=== PATIENT | female | born 1935 | race Caucasian/White ===

== ENCOUNTER 2018-07-17 12:48 | Inpatient (IN) | payer MEDICARE ==
[~2018-07-17] VITALS: Ht 157.5 cm; Wt 73.7 kg
[~2018-07-17 12:48] MED LIST: AMLO10TA6 PO; ASPI-496 PO; ESTR0.3T PO; FENO145T32 PO; METO200T47 PO
[2018-07-17] MEDS ORDERED: SODIUM CHLORIDE FLUSH 10ML SYR IVF ONE (13:00)
[2018-07-17 13:22] LABS: BASOPHILS # (AUTO) 0.02 x10^3/uL (0-0.1); BASOPHILS % (AUTO) 0 % (0-1); EOSINOPHILS # (AUTO) 0.04 x10^3/uL (0-0.4); EOSINOPHILS % (AUTO) 0 % (1-7); LYMPHOCYTES # (AUTO) 1.47 x10^3/uL (1-3.4); LYMPHOCYTES % (AUTO) 14 % (22-44); MD NO; MEAN CORPUSCULAR HEMOGLOBIN 30.9 pg (27.0-34.8); MEAN CORPUSCULAR HGB CONC 34.1 g/dL (32.4-35.8); MEAN CORPUSCULAR VOLUME 90.8 fL (80-100); MEAN PLATELET VOLUME 8.5 fL (7.4-10.4); MONOCYTES # (AUTO) 0.81 x10^3/uL (0.2-0.8); MONOCYTES % (AUTO) 7 % (2-9); NEUTROPHILS % (AUTO) 78 % (42-75); PLATELET COUNT 208 x10^3/uL (130-400); RED BLOOD COUNT 4.81 x10^6/uL (3.82-5.3); RED CELL DISTRIBUTION WIDTH 13.6 % (9.6-15.2)
[2018-07-17 13:30] LABS: INTERNATIONAL NORMALIZED RATIO 1.1 (0.93-1.1); PROTHROMBIN TIME 11.6 Seconds (9.6-11.5)
[2018-07-17 13:35] LABS: ALANINE AMINOTRANSFERASE 32 U/L (12-78); ALBUMIN 3.6 g/dL (3.4-5.0); ANION GAP 9 mmol/L (5-15); CALCIUM 8.4 mg/dL (8.5-10.1); CHLORIDE 112 mmol/L (98-107); CREATININE 1.29 mg/dL (0.55-1.02)
[2018-07-17 13:36] LABS: ALKALINE PHOSPHATASE 68 U/L (45-117); BILIRUBIN,TOTAL 0.5 mg/dL (0.2-1.0); SALICYLATE LEVEL < 1.7 mg/dL (2.8-20.0); TOTAL PROTEIN 6.6 g/dL (6.4-8.2)
[2018-07-17] MEDS: PLEASE ENTER HEIGHT AND WEIGHT MC SCH ×2 (13:57→14:52)
[2018-07-17 15:13] LABS: CULTURE INDICATED? YES; MICROSCOPIC INDICATED
[2018-07-17 15:26] LABS: AMPHETAMINE SCREEN, URINE Negative (Negative); BARBITURATE SCREEN, URINE Negative (Negative); BENZODIAZEPINE SCREEN, URINE Negative (Negative); CANNABINOID SCREEN, URINE Negative (Negative); COCAINE SCREEN, URINE Negative (Negative); METHADONE SCREEN, URINE Negative (Negative); OPIATE SCREEN, URINE Positive (Negative)
[2018-07-17] MEDS ORDERED: SODIUM CHLORIDE 0.9% 1,000 ML IV SCH (16:10)
[2018-07-17] MEDS ORDERED: HEPARIN 5,000 UNITS/ML, 1ML ONE (16:22)
[2018-07-17] MEDS ORDERED: ONDANSETRON 2MG/ML, 2ML IVPush PRN (16:30)
[2018-07-17] MEDS ORDERED: hydrALAzine 20 MG/ML, 1ML IVPush PRN (16:30)
[2018-07-17] MEDS ORDERED: POLYETHYLENE GLYCOL 17 GM PACKET PO PRN (16:30)
[2018-07-17] MEDS ORDERED: NALOXONE 0.4 MG/ML, 1ML IVPush PRN (16:30)
[2018-07-17] MEDS ORDERED: BISACODYL 10 MG SUPP PR PRN (16:30)
[2018-07-17] MEDS: HEPARIN 5,000 UNITS/ML, 1ML SQ SCH (16:44)
[2018-07-17 17:08] VITALS: BP 148/78
[2018-07-17] MEDS: METOPROLOL TARTRATE 50 MG TABLET PO SCH (18:00)
[2018-07-17 18:30] VITALS: BP 130/80
[2018-07-17] MEDS: CALCIUM CARBONATE 500 MG TAB.CHEW PO PRN (20:15)
[2018-07-17] MEDS ORDERED: OMEP20CA14 PO (22:36)
[2018-07-18] MEDS ORDERED: MAALOX/HYOSCYAMINE/LIDOCAINE 45 ML BTL PO ONE
[2018-07-18 00:49] VITALS: BP 129/71
[2018-07-18] MEDS: HEPARIN 5,000 UNITS/ML, 1ML SQ SCH ×3 (01:00→16:42)
[2018-07-18 04:50] LABS: BASOPHILS # (AUTO) 0.02 x10^3/uL (0-0.1); BASOPHILS % (AUTO) 0 % (0-1); EOSINOPHILS # (AUTO) 0.01 x10^3/uL (0-0.4); EOSINOPHILS % (AUTO) 0 % (1-7); LYMPHOCYTES % (AUTO) 15 % (22-44); MD NO; MEAN CORPUSCULAR HEMOGLOBIN 30.8 pg (27.0-34.8); MEAN CORPUSCULAR HGB CONC 33.9 g/dL (32.4-35.8); MEAN CORPUSCULAR VOLUME 90.9 fL (80-100); MEAN PLATELET VOLUME 8.8 fL (7.4-10.4); MONOCYTES # (AUTO) 0.62 x10^3/uL (0.2-0.8); MONOCYTES % (AUTO) 8 % (2-9); NEUTROPHILS # (AUTO) 6.31 x10^3/uL (1.8-6.8); NEUTROPHILS % (AUTO) 77 % (42-75); PLATELET COUNT 172 x10^3/uL (130-400); RED CELL DISTRIBUTION WIDTH 13.4 % (9.6-15.2)
[2018-07-18 05:00] LABS: ALBUMIN 3.2 g/dL (3.4-5.0); ANION GAP 8 mmol/L (5-15); CALCIUM 8.6 mg/dL (8.5-10.1); CHLORIDE 110 mmol/L (98-107)
[2018-07-18 05:03] LABS: ALANINE AMINOTRANSFERASE 48 U/L (12-78); ALKALINE PHOSPHATASE 58 U/L (45-117); BILIRUBIN,TOTAL 0.5 mg/dL (0.2-1.0); CREATININE 1.27 mg/dL (0.55-1.02)
[2018-07-18] MEDS: METOPROLOL TARTRATE 50 MG TABLET PO SCH ×2 (05:23→18:35)
[2018-07-18 06:59] VITALS: BP 132/79
[2018-07-18] MEDS: AMLODIPINE 10 MG TAB PO SCH (07:33)
[2018-07-18] MEDS: FENOFIBRATE 145 MG TABLET PO SCH (07:33)
[2018-07-18] MEDS: DOCUSATE 100 MG CAPSULE PO SCH (07:33)
[2018-07-18] MEDS: ASPIRIN 81 MG TABLET EC PO SCH (07:33)
[2018-07-18] MEDS: CALCIUM CARBONATE 500 MG TAB.CHEW PO PRN ×2 (09:47→20:50)
[2018-07-18 12:04] VITALS: BP 132/74
[2018-07-18 18:28] VITALS: BP 148/75
[2018-07-19 01:00] VITALS: BP 143/83
[2018-07-19] MEDS: HEPARIN 5,000 UNITS/ML, 1ML SQ SCH ×2 (01:00→07:38)
[2018-07-19 05:13] LABS: CHLORIDE 109 mmol/L (98-107)
[2018-07-19 05:18] LABS: ALANINE AMINOTRANSFERASE 44 U/L (12-78); ALBUMIN 3.5 g/dL (3.4-5.0); ALKALINE PHOSPHATASE 64 U/L (45-117); ANION GAP 9 mmol/L (5-15); BILIRUBIN,TOTAL 0.6 mg/dL (0.2-1.0); CALCIUM 8.8 mg/dL (8.5-10.1); CREATININE 1.29 mg/dL (0.55-1.02); TOTAL PROTEIN 6.6 g/dL (6.4-8.2)
[2018-07-19] MEDS: METOPROLOL TARTRATE 50 MG TABLET PO SCH (05:20)
[2018-07-19] MEDS ORDERED: OMEPRAZOLE 20 MG CAPSULE.DR PO SCH (06:00)
[2018-07-19 07:35] VITALS: BP 140/69
[2018-07-19] MEDS: ASPIRIN 81 MG TABLET EC PO SCH (07:37)
[2018-07-19] MEDS: FENOFIBRATE 145 MG TABLET PO SCH (07:37)
[2018-07-19] MEDS: AMLODIPINE 10 MG TAB PO SCH (07:37)
[2018-07-19] MEDS: DOCUSATE 100 MG CAPSULE PO SCH (07:38)
[2018-07-19 13:52] VITALS: BP 147/77
[2018-07-19] MEDS: CALCIUM CARBONATE 500 MG TAB.CHEW PO PRN (14:34)
== END 2018-07-19 15:15 | DRG 917 ==
LOC: ED 14:17 → EDIP 15:56 → OBSVTOIN 16:10 → 3NE 16:36
PROVIDERS: ADMIT Hospitalist; ATTEND Hospitalist
DX: T39.1X2A Poisoning by 4-Aminophenol derivatives, intentional self-harm, initial encounter (principal); N17.0 Acute kidney failure with tubular necrosis; N39.0 Urinary tract infection, site not specified; E78.5 Hyperlipidemia, unspecified; I11.9 Hypertensive heart disease without heart failure; K21.9 Gastro-esophageal reflux disease without esophagitis; R73.9 Hyperglycemia, unspecified; Z88.4 Allergy status to anesthetic agent; Z88.2 Allergy status to sulfonamides; Z88.8 Allergy status to other drugs, medicaments and biological substances; D72.828 Other elevated white blood cell count; I13.10 Hypertensive heart and chronic kidney disease without heart failure, with stage 1 through stage 4 chronic kidney disease, or unspecified chronic kidney disease; N18.9 Chronic kidney disease, unspecified; Z82.49 Family history of ischemic heart disease and other diseases of the circulatory system; Z87.891 Personal history of nicotine dependence; Z90.710 Acquired absence of both cervix and uterus; F32.9 Major depressive disorder, single episode, unspecified; Z90.49 Acquired absence of other specified parts of digestive tract
CPT/HCPCS: 36415; 71045; 80053; 80307; 80329; 81001; 82140; 83690; 85025; 85610; 87086; 93005; 99291; G0378; J2405; G0480; J7030

== ENCOUNTER 2018-07-19 13:56 | Inpatient (IN) | payer MEDICARE ==
[~2018-07-19] VITALS: Ht 157.5 cm; Wt 70.2 kg
[~2018-07-19 13:56] MED LIST changes: +OMEP20CA14 PO
[2018-07-19] MEDS ORDERED: POLYETHYLENE GLYCOL 17 GM PACKET PO PRN (15:00)
[2018-07-19] MEDS ORDERED: DOCUSATE 100 MG CAPSULE PO PRN (15:00)
[2018-07-19] MEDS ORDERED: ACETAMINOPHEN 325 MG TABLET PO PRN (15:00)
[2018-07-19] MEDS ORDERED: BISACODYL 10 MG SUPP PR PRN (15:00)
[2018-07-19 15:32] VITALS: BP 146/74
[2018-07-19] MEDS ORDERED: CALCIUM CARBONATE 500 MG TAB.CHEW PO PRN (17:00)
[2018-07-19 19:51] VITALS: BP 150/88
[2018-07-19] MEDS: METOPROLOL SUCCINATE 50 MG TAB.ER.24H PO SCH (21:07)
[2018-07-20 06:00] LABS: ANION GAP 8 mmol/L (5-15); CALCIUM 9.4 mg/dL (8.5-10.1); CHLORIDE 110 mmol/L (98-107); CHOLESTEROL, TOTAL 161 mg/dL (140-239); CREATININE 1.33 mg/dL (0.55-1.02); TRIGLYCERIDES 232 mg/dL (50-200); VLDL CHOLESTEROL 46 mg/dL (0-25)
[2018-07-20 06:26] LABS: CHOL/HDL RATIO 3.4; FOLATE LEVEL 18.2 ng/mL (3.1-17.5); FREE T4 (FREE THYROXINE) 1.09 ng/dL (0.76-1.46); HDL CHOL % 30 % (28-40); HDL CHOLESTEROL (DIRECT) 48 mg/dL (40-60); LDL CHOLESTEROL,CALCULATED 67 mg/dL (54-169); LDL/HDL RATIO 1.4 (0.5-3.0)
[2018-07-20 07:45] VITALS: BP 155/88
[2018-07-20] MEDS: OMEPRAZOLE 20 MG CAPSULE.DR PO PRN (07:55)
[2018-07-20] MEDS: ASPIRIN 81 MG TABLET EC PO SCH (08:42)
[2018-07-20] MEDS: AMLODIPINE 10 MG TAB PO SCH (08:42)
[2018-07-20] MEDS: FENOFIBRATE 145 MG TABLET PO SCH (08:42)
[2018-07-20] MEDS: METOPROLOL SUCCINATE 50 MG TAB.ER.24H PO SCH ×2 (08:43→21:06)
[2018-07-20 19:36] VITALS: BP 135/77
[2018-07-21 07:42] VITALS: BP 138/81
[2018-07-21] MEDS: OMEPRAZOLE 20 MG CAPSULE.DR PO PRN (07:44)
[2018-07-21] MEDS: FENOFIBRATE 145 MG TABLET PO SCH (09:43)
[2018-07-21] MEDS: ASPIRIN 81 MG TABLET EC PO SCH (09:43)
[2018-07-21] MEDS: METOPROLOL SUCCINATE 50 MG TAB.ER.24H PO SCH ×2 (09:43→21:24)
[2018-07-21] MEDS: AMLODIPINE 10 MG TAB PO SCH (09:43)
[2018-07-21 19:33] VITALS: BP 139/80
[2018-07-22] MEDS: OMEPRAZOLE 20 MG CAPSULE.DR PO PRN (07:39)
[2018-07-22 07:49] VITALS: BP 146/78
[2018-07-22] MEDS: METOPROLOL SUCCINATE 50 MG TAB.ER.24H PO SCH ×2 (08:35→20:27)
[2018-07-22] MEDS: ASPIRIN 81 MG TABLET EC PO SCH (08:35)
[2018-07-22] MEDS: AMLODIPINE 10 MG TAB PO SCH (08:36)
[2018-07-22] MEDS: FENOFIBRATE 145 MG TABLET PO SCH (08:36)
[2018-07-22 19:21] VITALS: BP 129/81
[2018-07-23] MEDS: OMEPRAZOLE 20 MG CAPSULE.DR PO PRN (07:48)
[2018-07-23 08:00] VITALS: BP 134/83
[2018-07-23] MEDS: AMLODIPINE 10 MG TAB PO SCH (09:00)
[2018-07-23] MEDS: METOPROLOL SUCCINATE 50 MG TAB.ER.24H PO SCH ×2 (09:00→19:41)
[2018-07-23] MEDS: FENOFIBRATE 145 MG TABLET PO SCH (09:00)
[2018-07-23] MEDS: ASPIRIN 81 MG TABLET EC PO SCH (09:00)
[2018-07-23 19:20] VITALS: BP 118/74
[2018-07-24] MEDS: OMEPRAZOLE 20 MG CAPSULE.DR PO PRN (07:17)
[2018-07-24 07:19] VITALS: BP 148/90
[2018-07-24] MEDS: AMLODIPINE 10 MG TAB PO SCH (08:28)
[2018-07-24] MEDS: ASPIRIN 81 MG TABLET EC PO SCH (08:29)
[2018-07-24] MEDS: METOPROLOL SUCCINATE 50 MG TAB.ER.24H PO SCH ×2 (08:29→20:40)
[2018-07-24] MEDS: FENOFIBRATE 145 MG TABLET PO SCH (08:29)
[2018-07-24 19:36] VITALS: BP 121/73
[2018-07-25] MEDS: OMEPRAZOLE 20 MG CAPSULE.DR PO PRN (07:30)
[2018-07-25 07:48] VITALS: BP 130/72
[2018-07-25] MEDS: FENOFIBRATE 145 MG TABLET PO SCH (09:12)
[2018-07-25] MEDS: ASPIRIN 81 MG TABLET EC PO SCH (09:12)
[2018-07-25] MEDS: METOPROLOL SUCCINATE 50 MG TAB.ER.24H PO SCH (09:13)
[2018-07-25] MEDS: AMLODIPINE 10 MG TAB PO SCH (09:13)
== END 2018-07-25 14:25 | disposition home or self-care (01) | DRG 918 ==
LOC: 3E 15:36
PROVIDERS: ADMIT Counselor Mental Health; ATTEND Counselor Mental Health
DX: T39.1X2A Poisoning by 4-Aminophenol derivatives, intentional self-harm, initial encounter (principal); I13.10 Hypertensive heart and chronic kidney disease without heart failure, with stage 1 through stage 4 chronic kidney disease, or unspecified chronic kidney disease; Z87.891 Personal history of nicotine dependence; N18.3 Chronic kidney disease, stage 3 (moderate); Z90.710 Acquired absence of both cervix and uterus; K21.9 Gastro-esophageal reflux disease without esophagitis; E78.5 Hyperlipidemia, unspecified; D72.829 Elevated white blood cell count, unspecified; Y92.89 Other specified places as the place of occurrence of the external cause; F32.9 Major depressive disorder, single episode, unspecified; F43.20 Adjustment disorder, unspecified; T40.2X2A Poisoning by other opioids, intentional self-harm, initial encounter; Z79.82 Long term (current) use of aspirin; Z79.899 Other long term (current) drug therapy; Z82.49 Family history of ischemic heart disease and other diseases of the circulatory system; Z90.49 Acquired absence of other specified parts of digestive tract
CPT/HCPCS: 36415; 80048; 80061; 82140; 82607; 82746; 84439; 84443; 86592; 92523-GN